=== PATIENT | female | born 1965 | race Caucasian/White ===

== ENCOUNTER 2019-08-31 05:08 | Emergency (ER) | payer BC ==
[2019-08-31 05:25] VITALS: BP 127/85; PULSE 110
[2019-08-31] MEDS ORDERED: Ibuprofen 600 MG Tab PO ONE (05:57)
[2019-08-31] MEDS ORDERED: Orphenadrine 100 MG Tab.ER PO STA (05:57)
--- NOTE | 2019-08-31 06:00 | EDM.PDOC ---
ED HPI GENERAL MEDICAL PROBLEM - General Chief Complaint: Back Pain or Injury Stated Complaint: HIP PAIN Time Seen by Provider: 08/31/19 05:23 Source of Information: Reports: Patient History Limitations: Reports: No Limitations - History of Present Illness INITIAL COMMENTS - FREE TEXT/NARRATIVE: Mrs. Simeon is a very pleasant 54-year-old woman with no chronic medical problems other than suffering an injury to her right knee when she was in high school. She was told at the time that it was just a sprain, but she later learned that she had torn ligaments, and required a right total knee arthroplasty about 5 years ago. Because of chronic right knee pain as she was growing up, however, she would often stand on her left lower extremity instead of both of her extremities, leading to chronic lower left back pain. The patient states that she apparently pulled her left lower back/left upper buttock muscle about 2 weeks ago, while shoveling snow. 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. The patient acknowledges, however, that she was also shoveling snow again. Her pain redeveloped on 08/29/2019. She went to her chiropractor yesterday, Friday , 08/30/2019, but her pain has not improved. She took a leftover [place] last night , without improvement. She states that her pain is so severe that she has difficulty walking, and she cannot work. The patient states that her pain is primarily felt in her left upper buttock, but that it radiates down her posterior and lateral left thigh to the mid- thigh. No weakness to the left hip or thigh. She denies having back pain, per se. Her buttock pain is made worse if she sits. She had a temperature of 99.6 2 days ago, but none since. No recent nausea, vomiting, constipation, or diarrhea. No urinary symptoms. No incontinence. The patient does not have a PCP, although her sees Dr. Debra Gomes. She did receive an influenza vaccine this season. Left Hip Pain Score (Numeric/FACES): 10 - Related Data Allergies Allergy/AdvReac Type Severity Reaction Status Date / Time latex Allergy Blisters Verified 08/31/19 05:25 Home Meds: Home Meds Orphenadrine [Norflex] 1 tab PO Q12H PRN #14 tab.er 08/31/19 [Rx] Past Medical History Endocrine/Metabolic History: Reports: Obesity/BMI 30+ - Past Surgical History Female Surgical History: Reports: Section (x 1) Musculoskeletal Surgical History: Reports: Knee Replacement (right) Social & Family History - Tobacco Use Smoking Status *Q: Never Smoker - Caffeine Use Caffeine Use: Reports: None - Alcohol Use Alcohol Use History: Yes Alcohol Use Frequency: Socially - Recreational Drug Use Recreational Drug Use: No - Living Situation & Occupation Living situation: Reports: , with Spouse, with Family (1 child) 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 ED EXAM,LOWER BACK PAIN/INJURY - Physical Exam Exam: See Below Exam Limited By: No Limitations General Appearance: Alert, WD/WN, Mild Distress (appears uncomfortable) Back Exam: Other (No visible abnormality to the patient's back, such as swelling , erythema, ecchymosis, or abrasion. She reports mild tenderness to palpation over L3-L5, but much greater tenderness to palpation of the left lower lumbar paraspinal musculature. The greatest tenderness is over the left SI joint. She is also tender to her left upper buttock musculature. She acknowledges that pain radiates to her lower buttock and upper left thigh, but these areas are not tender to palpation. Straight leg raise is negative to 90 on the right, while straight leg raise to 70 on the left induces lower back pain without radicular symptoms. When standing, the patient is unable to flex at all, due to pain. She is able to extend her spine to about 10. She is able to tilt her spine to about 10 bilaterally. She is able to twist her spine to the left to about 45, 10 to the right. Unilateral knee bend is better on the right than the left.) Course - Vital Signs Last Recorded V/S: Last Vital Signs Temp 36.7 C 08/31/19 05:19 Pulse 110 H 08/31/19 05:19 Resp 20 08/31/19 05:19 BP 127/85 08/31/19 05:19 Pulse Ox 95 08/31/19 05:19 - Orders/Labs/Meds Meds: Medications Discontinued Medications Generic Name Dose Route Start Last Admin Trade Name Joey PRN Reason Stop Dose Admin Ibuprofen 600 mg 08/31/19 05:57 08/31/19 06:02 Motrin PO 08/31/19 05:58 600 mg ONETIME ONE Administration Orphenadrine Citrate 100 mg 08/31/19 05:57 08/31/19 06:03 Norflex PO 08/31/19 05:58 100 mg ONETIME STA Administration - Re-Assessments/Exams Free Text/Narrative Re-Assessment/Exam: 08/31/19 05:55 The patient's history and physical examination indicate that her lower back pain is due to a muscle spasm, not lumbar stenosis or radiculopathy. I will therefore start the patient on Norflex and ibuprofen, and submit in a prescription for Norflex. She should take [id number] ibuprofen around-the- clock. I would like her to stay active - swimming is best, but walking is good, as well. I would like her to follow-up in our clinic later this week if her symptoms do not improve. I will provide her a note for work for the next couple of days. Departure - Departure Time of Disposition: 05:58 Disposition: Home, Self-Care 01 Condition: Good Clinical Impression: Spasm of back muscles - Discharge Information *PRESCRIPTION DRUG MONITORING PROGRAM REVIEWED*: Not Applicable *COPY OF PRESCRIPTION DRUG MONITORING REPORT IN PATIENT NONI: Not Applicable Prescriptions: Orphenadrine [Norflex] 1 tab PO Q12H PRN #14 tab.er PRN Reason: Muscle Spasm Instructions: Muscle Cramps and Spasms, [id number] Referrals: Debra Gomes MD [Physician] - Forms: ED Department Discharge, ED Return to Work/School Form Additional Instructions: You were seen in the emergency room for lower left back pain radiating down your left thigh, for the past 2 weeks. Based on your history and physical examination, your back pain is due to a muscle spasm. You have been started on a muscle relaxant Norflex, and a prescription for Norflex has been sent to the [facility]. Take one tablet of Norflex every 12 hours, starting this evening, 08/31/2019, as prescribed. In addition to Norflex, we recommend that you take [id number] ibuprofen, 3 tablets (600 mg) every 8 hours, with food, around the clock. As discussed, it is very important that you stay active. Swimming is best, but walking is very good, as well. A note for work has been provided to you, however, if you are not feeling well enough to go back to work by the end of this week, you need to follow-up with Dr. Debra Gomes, or one of the other providers in the clinic. If any other problems, please do not hesitate to return to the ER. Sepsis Event Note - Evaluation Sepsis Screening Result: No Definite Risk - Focused Exam Vital Signs: Vital Signs Temp Pulse Resp BP Pulse Ox 08/31/19 05:19 36.7 C 110 H 20 127/85 95 Date Exam was Performed: 08/31/19 Time Exam was Performed: 06:16
== END 2019-08-31 06:14 | disposition home or self-care (01) ==
LOC: JD.ED 05:08
DX: M62.830 Muscle spasm of back (principal); Z91.040 Latex allergy status
CPT/HCPCS: 99283; A9270

== ENCOUNTER 2022-11-27 06:20 | Day surgery (SDC) | payer BC ==
[~2022-11-27 06:20] MED LIST: Lidocaine 1%/Sod Bicarbonate in NS 8.4% 1 ML Syringe IDERM PRN; Sodium Chloride 0.9% 10 ML Syringe FLUSH PRN; Sodium Chloride 0.9% 10 ML Syringe FLUSH SCH
[2022-11-27] MEDS ORDERED: Propofol 200 MG/20 ML SDV ONE (06:22)
[2022-11-27] MEDS ORDERED: ceFAZolin 2 GM Vial ONE (06:22)
[2022-11-27] MEDS ORDERED: Rocuronium 50 MG/5 ML Vial ONE (06:22)
[2022-11-27] MEDS ORDERED: fentaNYL 100 MCG/2 ML SDV ONE (06:23)
[2022-11-27] MEDS ORDERED: Ketorolac 30 MG/ML SDV ONE (06:23)
[2022-11-27] MEDS ORDERED: Lidocaine 1% 4 ML ONE (06:23)
[2022-11-27] MEDS ORDERED: Ondansetron 4 MG/2 ML SDV ONE (06:23)
[2022-11-27] MEDS ORDERED: Midazolam 1 MG/ML 2 ML SDV ONE (06:23)
[2022-11-27] MEDS ORDERED: Dexmedetomidine 200 MCG/2 ML SDV ONE (06:28)
[2022-11-27] MEDS ORDERED: EPINEPHrine 1 MG/ML SDV ONE (06:29)
[2022-11-27] MEDS ORDERED: Ropivacaine 0.5% 5 MG/ML 30 ML SDV ONE (06:29)
[2022-11-27] MEDS: Lactated Ringers 1,000 ML IV SCH ×2 (06:40→08:50)
[2022-11-27] MEDS ORDERED: EPINEPHrine 1 MG/ML 30 ML MDV IRR SCH (07:00)
[2022-11-27] MEDS ORDERED: fentaNYL 100 MCG/2 ML SDV IVPUSH PRN (07:55)
[2022-11-27] MEDS ORDERED: Ondansetron 4 MG/2 ML SDV IVPUSH PRN (07:55)
[2022-11-27] MEDS ORDERED: HYDROmorphone 0.5 MG/0.5 ML Syringe IVPUSH PRN (07:55)
[2022-11-27] MEDS ORDERED: Neostigmine Methylsulfate 10 MG/10 ML MDV ONE (08:15)
[2022-11-27] MEDS ORDERED: Acetaminophen/HYDROcodone 325-5 MG Tab PO PRN (08:43)
[2022-11-27 11:42] VITALS: BP 129/78; PULSE 68
== END 2022-11-27 11:27 | disposition home or self-care (01) ==
LOC: JD.SDS 06:20
PROVIDERS: ATTEND Orthopaedic Surgery
DX: M75.102 Unspecified rotator cuff tear or rupture of left shoulder, not specified as traumatic (principal); M75.82 Other shoulder lesions, left shoulder; M75.42 Impingement syndrome of left shoulder; E11.9 Type 2 diabetes mellitus without complications; M54.9 Dorsalgia, unspecified; G89.29 Other chronic pain; E66.9 Obesity, unspecified; Z79.899 Other long term (current) drug therapy; Z79.84 Long term (current) use of oral hypoglycemic drugs; Z98.890 Other specified postprocedural states; Z91.048 Other nonmedicinal substance allergy status; Z68.33 Body mass index [BMI] 33.0-33.9, adult
CPT/HCPCS: 29823; 29826; 29827; 29828; 64415; 82947; C1713; J0171; J0690; J1885; J2250; J2405; J2704; J2710; J2795; J3010; J7120; 01630; J3490

== ENCOUNTER 2023-09-25 14:14 | Emergency (ER) | payer OTHER, BC ==
[2023-09-25 16:09] VITALS: BP 118/91; PULSE 85
== END 2023-09-25 16:08 | disposition home or self-care (01) ==
LOC: JD.ED 14:14
DX: S49.91XA Unspecified injury of right shoulder and upper arm, initial encounter (principal); E66.9 Obesity, unspecified; Z79.899 Other long term (current) drug therapy; Z91.048 Other nonmedicinal substance allergy status; W00.9XXA Unspecified fall due to ice and snow, initial encounter
CPT/HCPCS: 73030-26-RT; 73030-RT; 99283